=== PATIENT | male | born 2000 | race Caucasian/White ===

== ENCOUNTER 2024-08-18 14:09 | Emergency (ER) | payer OTHER, SELFPAY ==
[2024-08-18] VITALS (20 sets, daily range): BP systolic 128–141; BP diastolic 65–95; PULSE 84–118; RESP 12–18; TEMP 36.1–36.7; O2SAT 96–97
--- NOTE | 2024-08-18 14:00 | RT.EKG_ITS ---
APPROVED REPORT Exam: Resting ECG Reason for Exam: palpatations Patient Location: E HR:109 bpm ECG Measurements Heart Rate 109 AXIS WA 172 P 42 QRSd 94 QRS 40 QT 318 T 1 QTc 430 Conclusion Sinus tachycardia...rate> 99 Abnormal T, consider ischemia, anterior leads...T <-0.20mV, V2-V4
--- NOTE | 2024-08-18 14:59 | W.ED.GENAD ---
Discharge Plan Disposition Patient Disposition: Home Condition: Stable Discharge Details Clinical Impression: Palpitations, Shortness of breath Primary Care Provider: Unknown,Unknown ED Provider: Jacek Chaney Home Meds and New Rx's Prescriptions: Continued albuterol sulfate 90 mcg/actuation HFA aerosol inhaler 2 puff inhalation Q6H PRN (Reason: shortness of breath or wheezing) Qty: 8.5 0RF (DME) Aerochamber Mini 1 EACH spacer 1 ea Miscellaneous Q4H PRN Qty: 1 albuterol sulfate [ProAir HFA] 8.5 GM HFA aerosol inhaler 2 puff Inhalation Q4H PRN Qty: 1 Rx Instructions: 2 puffs with spacer every 4hr as needed for cough/wheeze multivitamin [Daily Multi-Vitamin] 1 EACH tablet 1 ea PO DAILY Discharge Instructions Additional Instructions: Your blood work today did not show any concerning findings Follow-up with your primary care provider within 1 to 2 weeks If you feel more ill, have severe worsening pain or new symptoms such as persistent vomiting return to the emergency department for reevaluation HPI General Mode of arrival: ambulatory. Date/Time Provider Initiated Documentation: 08/18/24 14:26. Limitations to Documentation: no limitations. Information obtained by: patient. History of Present Illness 24 year old M presents to the emergency department with the chief complaint of palpitations, described as moderate, Patient started experiencing this year(s) (2) and it has been intermittent. No relieving factors improve symptom(s), No exacerbating factors reported . Patient notes shortness of breath; denies chest pain and fever/chills. Related Data Home Medications ?Medication ?Instructions ?Recorded ?Confirmed multivitamin (Daily Multi-Vitamin 1 ea PO DAILY 02/18/13 08/18/24 tablet) inhalational spacing device ##1 01/06/15 08/18/24 (Aerochamber Mini) albuterol sulfate 90 mcg/actuation 2 puff inhalation Q4H PRN ##1 09/24/16 08/18/24 aerosol inhaler (ProAir HFA) albuterol sulfate 90 mcg/actuation 2 puff inhalation Q6H PRN 10/07/23 08/18/24 aerosol inhaler shortness of breath or wheezing #8.5 grams Previous Rx's ?Medication ?Instructions ?Recorded albuterol sulfate 90 mcg/actuation 2 puff inhalation Q6H PRN 10/07/23 aerosol inhaler shortness of breath or wheezing #8.5 grams Allergies Allergy/AdvReac Type Severity Reaction Status Date / Time No Known Allergies Allergy Verified 08/18/24 14:17 General Stated Complaint: Palpitatns LARRY: 3 Review of Systems All systems reviewed & are unremarkable except as noted in HPI and below Constitutional Constitutional: Denies chills, Denies fever(s) and Denies weakness Cardiovascular Cardiovascular: Denies chest pain, Reports dyspnea and Reports other (palpitations) Respiratory Respiratory: Denies cough and Reports dyspnea Gastrointestinal Gastrointestinal: Denies abdominal pain, Denies nausea and Denies vomiting Musculoskeletal Musculoskeletal: Denies joint swelling Neurologic Neurologic: Denies weakness Exam Const General: no acute distress Orientation: alert HENAR Head: normal to inspection Ears: external ears normal General nose exam: external nose normal Mouth: moist mucous membranes Eyes General: appearance normal, both eyes and all related structures Neck Neck: normal visual inspection Resp Effort & Inspection: normal respiratory effort and able to speak in complete sentences Auscultation: clear to auscultation bilaterally Cardio Jugular venous pressure: no JVD Rate: regular rate Heart Sounds: no murmurs Skin General skin exam: no rashes or lesions noted Neuro General: patient alert and patient oriented x3 Extrem General: normal to inspection Psych Mental Status: mental status grossly normal Course Vital Signs Vital signs: Vital Signs Temperature 36.7 C 08/18/24 14:11 Pulse 118 H 08/18/24 14:11 Respiratory Rate 12 08/18/24 14:11 Blood Pressure 141/95 H 08/18/24 14:11 Pulse Oximetry 96 08/18/24 14:11 Temperature 36.7 C 08/18/24 14:11 Temperature Source Oral 08/18/24 14:11 Pulse 118 H 08/18/24 14:11 Respiratory Rate 12 08/18/24 14:11 Respiratory Effort Normal, Non-Labored 08/18/24 14:15 Blood Pressure 141/95 H 08/18/24 14:11 Blood Pressure Position Sitting 08/18/24 14:11 Pulse Oximetry 96 08/18/24 14:11 Oxygen Delivery Method Room Air 08/18/24 14:11 Oxygen Flow Rate 0 08/18/24 14:11 Pain Level 0 08/18/24 14:11 Medical Decision Making 24-year-old male who denies any significant chronic medical problems and no family history of cardiac issues that he is aware of comes in with 2 years of intermittent palpitations where he feels like he skips a beat. He says this is chronic and has seen his primary without findings and does not usually bothersome to him but the last 2 days has been worse. He says they feel short of breath especially when he tries to walk around. He is alert and oriented x 4 speaking clearly on exam. His triage vitals he was tachycardic but on my exam he is currently in the 80s. He has clear lungs, no JVD, no murmur, no significant leg swelling. Given his new shortness of breath will obtain CBC and CMP to evaluate for anemia and electrolyte abnormality and also obtain D-dimer to screen for PE given he was tachycardic on arrival. He has no chest pain or chest pressure so doubt ACS but will check troponins. He has no tearing back pain and equal peripheral pulses so doubt dissection. Labs unremarkable including D-dimer. Patient is stable, unclear etiology for his symptoms though given reassuring workup feel he can follow-up with his PCP, return precautions given Differential Diagnosis Differential Diagnosis: Anxiety, electrolyte abnormality, NSTEMI, PE Medical Records Medical records reviewed: Yes I reviewed the patient's medical records. Lab Data Lab results reviewed: Yes I reviewed the patient's lab results. ECG Data Attestation: I personally reviewed and interpreted this ECG (s) as follows: Prior ECG tracings: not available for review Interpretation: Sinus tachycardia, rate of 109, DE 172, no STEMI Quality:SDOH Health Related Social Needs: No Data to Display [facility] All Active Problems (Updated 08/18/24 @ 17:23 by Jacek Chaney MD) Shortness of breath (Acute) Palpitations (Acute) Medical History Asthma Pneumonia age 12 Eczema since age 4 yrs Botulism, infantile age 3 weeks [facility] [place] 4 [place] Vision problem WEARS GLASSES Respiratory syncytial virus several x as toddler helped by [facility] Surgical History right ankle surgery 2014- screws after break Fracture, Closed Treatment right wrist Family History Maternal Uncle Asthma MU diagnosed age 30 Mother Healthy adult Mental disorder DEPRESSION/ANXIETY Father Essential hypertension Grandfather Personal history of malignant neoplasm lung CA Grandmother No problems noted. Grandparent Diabetes Essential hypertension Personal history of malignant neoplasm Heart disease Hyperlipidemia Mental disorder Social History Smoking/Tobacco Use Status: Never Smoking risk assessment performed?: Yes Alcohol Intake: never Drug use: Never Substance use type: does not use Housing: house Do you feel safe at home: Yes Do you feel safe in your relationship?: Yes
[2024-08-18 16:00] LABS: Abs Immature Grans 0.02 10^3/uL (0.0-0.06); Absolute Basophil Count 0.06 10^3/uL (0.0-0.2); Absolute Lymphocyte Count 2.39 10^3/uL (1.2-3.4); Absolute Monocyte Count 0.57 10^3/uL (0.1-0.8); Absolute Neutrophil Count 3.24 10^3/uL (1.2-6.7); Basophils % 0.9 %; Eosinophils % 3.1 %; HGB 14.7 g/dL (13.5-17.5); Immature Grans % 0.3 %; Lymphocytes % 36.9 %; MCH 26.9 pg (27.0-33.0); MCHC 32.7 % (32.0-36.0); MCV 82 fL (80-95); MPV 8.8 fL (8.0-11.0); Monocytes % 8.8 %; Platelet Count 262 10^3/uL (130-400); RBC 5.47 10^6/uL (4.36-5.78); RDW 11.9 % (11.8-14.1); RDW-SD 36.1 fL; WBC 6.48 10^3/uL (4.4-10.8)
[2024-08-18 16:19] LABS: ALT 38 U/L (16-63); AST 24 U/L (15-37); Albumin 3.8 g/dL (3.4-5.0); Alkaline Phosphatase 41 U/L (46-116); BUN 9 mg/dL (7-18); Bilirubin, Total 0.55 mg/dL (0.2-1.0); CO2 29.2 mmol/L (21.0-32.0); Calcium 8.8 mg/dL (8.5-10.1); Estimated GFR 107.12 (mL/min/1.73m2); Glucose 84 mg/dL (74-106); Magnesium 1.9 mg/dL (1.8-2.4); Total Protein 7.2 g/dL (6.4-8.2); Troponin I 5 ng/L (<or=76)
[2024-08-18 16:30] LABS: D-Dimer 208 ng/mlFEU (<500)
[2024-08-18 16:42] LABS: Anion Gap 8.8 mmol/L (3-11); Chloride 106 mmol/L (98-107); Potassium 3.8 mmol/L (3.5-5.1); Sodium 144 mmol/L (136-145)
[2024-08-18 16:55] LABS: Troponin I 5 ng/L (<or=76)
== END 2024-08-18 17:45 | disposition home or self-care (01) ==
PROVIDERS: Emergency Provider Emergency Medicine
DX: R00.2 Palpitations (principal); R06.02 Shortness of breath; R94.31 Abnormal electrocardiogram [ECG] [EKG]
CPT/HCPCS: 36415; 80053; 93005; 99284; 83735; 84484; 85025; 85379; 93010; 99283

== ENCOUNTER 2025-06-23 14:00 | Emergency (ER) | payer OTHER, SELFPAY ==
[2025-06-23 14:26] VITALS: BP 117/70; PULSE 105; RESP 18; TEMP 36.8; O2SAT 94
--- NOTE | 2025-06-23 14:30 | DI.RAD_ITS ---
Exam(s) XR ANKLE RT COMPLETE EXAM: XR ANKLE RT COMPLETE CLINICAL HISTORY: pain s/p twisting injury. TECHNIQUE: 2D digital imaging was performed. Three views. COMPARISON: CR RIGHT ANKLE COMPLETE from 02/13/2015 CR RIGHT ANKLE COMPLETE from 03/28/2015 CR XR FOOT RT COMPLETE from 06/23/2025 FINDINGS: BONES: There is a tiny bony fragment which appears rounded adjacent to the lateral aspect of the talus which is not have an acute appearance. No bony destructive lesion is seen. There are [address] in the distal tibia. JOINTS: The ankle mortise is normally aligned. The ankle joint space is maintained. SOFT TISSUE: Significant soft tissue swelling around the lateral malleolus. IMPRESSION: Soft tissue swelling. No acute fracture is visible. DATA REPOSITORY: RADIATION DOSE DELIVERED:
--- NOTE | 2025-06-23 14:30 | DI.RAD_ITS ---
Exam(s) XR FOOT RT COMPLETE EXAM: XR FOOT RT COMPLETE CLINICAL HISTORY: pain s/p twisting injury. TECHNIQUE: 2D digital imaging was performed. Three views. COMPARISON: No exams were available for comparison FINDINGS: BONES: No acute fracture is present. No bony destructive lesion is seen. JOINTS: No dislocation present. SOFT TISSUE: Normal. IMPRESSION: Unremarkable radiographs of the right foot. DATA REPOSITORY: RADIATION DOSE DELIVERED:
--- NOTE | 2025-06-23 14:38 | ED.GENADUL_ITS ---
Discharge Plan Disposition Patient Disposition: Home Condition: Stable Discharge Details Clinical Impression: Right ankle sprain, Injury of right ankle, Injury of foot, right Primary Care Provider: Nehemias Hui ED Provider: Jacek Chaney Home Meds and New Rx's Prescriptions: Continued albuterol sulfate 90 mcg/actuation HFA aerosol inhaler 2 puff inhalation Q6H PRN (Reason: shortness of breath or wheezing) Qty: 8.5 0RF (DME) Aerochamber Mini 1 EACH spacer 1 ea Miscellaneous Q4H PRN Qty: 1 albuterol sulfate [ProAir HFA] 8.5 GM HFA aerosol inhaler 2 puff Inhalation Q4H PRN Qty: 1 Rx Instructions: 2 puffs with spacer every 4hr as needed for cough/wheeze multivitamin [Daily Multi-Vitamin] 1 EACH tablet 1 ea PO DAILY Discharge Instructions Additional Instructions: Your x-rays did not show any broken bones. If you are still in pain that is not improving in a week follow-up with your primary care provider. You can take 1000 mg of acetaminophen and 600 mg of ibuprofen every 6 hours as needed. Return to the emergency department if you feel ill or have severe worsening pain. HPI General Mode of arrival: ambulatory . Date/Time Provider Initiated Documentation: 06/23/25 14:32 . Limitations to Documentation: no limitations . Information obtained by: patient . History of Present Illness 24 year old M presents to the emergency department with the chief complaint of right ankle and foot pain s/p twisting injury, described as moderate, Quality is described as aching, and is localized to the right and lower extremity. Patient reports no radiation. and it has been constant. Rest improves symptom(s), Movement worsens symptoms . Patient notes no other symptoms.. Patient did receive the following treatments prior to arrival, none Related Data Home Medications ?Medication ?Instructions ?Recorded ?Confirmed multivitamin (Daily Multi-Vitamin 1 ea PO DAILY 06/23/25 tablet) inhalational spacing device ##1 01/06/15 06/23/25 (Aerochamber Mini) albuterol sulfate 90 mcg/actuation 2 puff inhalation Q 4H PRN ##1 09/24/16 06/23/25 aerosol inhaler (ProAir HFA) albuterol sulfate 90 mcg/actuation 2 puff inhalation Q 6H PRN 10/07/23 06/23/25 aerosol inhaler shortness of breath or wheez ing #8.5 grams Previous Rx's ?Medication ?Instructions ?Recorded albuterol sulfate 90 mcg/actuation 2 puff inhalation Q 6H PRN 10/07/23 aerosol inhaler shortness of breath or wheez ing #8.5 grams Allergies Allergy/AdvReac Type Severity Reaction Status Date / Time No Known Allergies Allergy Verified 06/23/25 14:31 General Stated Complaint: Orthopedic LARRY: 4 Review of Systems All systems reviewed & are unremarkable except as noted in HPI and below Constitutional Constitutional: Denies chills, Denies fever(s) and Denies weakness Cardiovascular Cardiovascular: Denies chest pain and Denies dyspnea Respiratory Respiratory: Denies cough and Denies dyspnea Gastrointestinal Gastrointestinal: Denies abdominal pain, Denies nausea and Denies vomiting Musculoskeletal Musculoskeletal: Reports arthralgias Neurologic Neurologic: Denies weakness Exam Const General: no acute distress Orientation: alert HENMT Head: normal to inspection Ears: external ears normal General nose exam: external nose normal Mouth: moist mucous membranes Eyes General: appearance normal, both eyes and all related structures Neck Neck: normal visual inspection Resp Effort & Inspection: normal respiratory effort and able to speak in complete sentences Cardio Rate: regular rate Skin General skin exam: no rashes or lesions noted Neuro General: patient alert and patient oriented x3 Extrem General: full ROM and capillary refill normal Psych Mental Status: mental status grossly normal Course Vital Signs Vital signs: Vital Signs Temperature 36.8 C 06/23/25 14:26 Pulse 105 H 06/23/25 14:26 Respiratory Rate 18 06/23/25 14:26 Blood Pressure 117/70 06/23/25 14:26 Pulse Oximetry 94 06/23/25 14:26 Temperature 36.8 C 06/23/25 14:26 Temperature Source Oral 06/23/25 14:26 Pulse 105 H 06/23/25 14:26 Respiratory Rate 18 06/23/25 14:26 Blood Pressure 117/70 06/23/25 14:26 Blood Pressure Position Sitting 06/23/25 14:26 Pulse Oximetry 94 06/23/25 14:26 Oxygen Delivery Method Room Air 06/23/25 14:26 Oxygen Flow Rate 0 06/23/25 14:26 Pain Level 7 06/23/25 14:26 Medical Decision Making 24-year-old male comes in with ankle and foot pain. He says he was walking this morning on uneven surface, he stepped over his right ankle. He did not hit his head or sustain other injuries. He has pain over the lateral ankle and lateral midfoot. He has swelling over the lateral malleolus on exam and has tenderness in this area. He also is tenderness in the lateral midfoot. There is no visible deformities of the foot. He has full range of motion of the ankle and intact sensation and pulses. He has no posterior ankle tenderness. He has intact plantarflexion with calf squeeze. Suspect ankle and foot sprain, will obtain x-rays to further evaluate. No findings on exam to [facility] achilles tendon injury X-ray is negative on my read and also radiology read. Patient is stable. I suspect sprain,. He is stable for discharge and will follow-up with his PCP if not improving and return precautions given Differential Diagnosis Differential Diagnosis: Sprain, fracture [facility] All Active Problems (Updated 06/23/25 @ 15:39 by Jacek Chaney MD) Injury of foot, right (Acute) Injury of right ankle (Acute) Right ankle sprain (Acute) Medical History Asthma Pneumonia age 12 Eczema since age 4 yrs Botulism, infantile age 3 weeks [facility] ICU x 4 weeks Vision problem WEARS GLASSES Respiratory syncytial virus several x as toddler helped by [facility] Surgical History right ankle surgery 2013- screws after break Fracture, Closed Treatment right wrist Family History Maternal Uncle Asthma MU diagnosed age 30 Mother Healthy adult Mental disorder DEPRESSION/ANXIETY Father Essential hypertension Grandfather Personal history of malignant neoplasm lung CA Grandmother No problems noted. Grandparent Diabetes Essential hypertension Personal history of malignant neoplasm Heart disease Hyperlipidemia Mental disorder Social History Smoking/Tobacco Use Status: Never Smoking risk assessment performed?: Yes Alcohol Intake: never Drug use: Never Substance use type: does not use Housing: house Do you feel safe at home: Yes Do you feel safe in your relationship?: Yes
== END 2025-06-23 15:57 | disposition home or self-care (01) ==
LOC: ER 15:39
PROVIDERS: Emergency Provider Emergency Medicine; PCP Family Medicine
DX: S93.401A Sprain of unspecified ligament of right ankle, initial encounter (principal); M79.671 Pain in right foot; X58.XXXA Exposure to other specified factors, initial encounter
CPT/HCPCS: 99283 ×2; 29515; 73610; 73630